=== PATIENT | female | born 1955 | race Caucasian/White ===

== ENCOUNTER → 2024-02-05 08:59 | Outpatient (REF) | payer MEDICARE, SELFPAY | LOC: HWRCS 08:59 | PROVIDERS: ATTENDING PHYSICIAN Family Medicine | DX: I34.0 Nonrheumatic mitral (valve) insufficiency (principal) | CPT/HCPCS: 93306 ==

== ENCOUNTER → 2024-02-23 15:02 | Outpatient (REF) | payer MEDICARE, SELFPAY | LOC: WDC 15:02 | PROVIDERS: ATTENDING PHYSICIAN Family Medicine | DX: Z12.31 Encounter for screening mammogram for malignant neoplasm of breast (principal) | CPT/HCPCS: 77063; 77067 ==

== ENCOUNTER → 2024-07-11 10:54 | Outpatient (REF) | payer MEDICARE, SELFPAY ==
[2024-07-11 11:57] LABS: % Basophils 0.7 % (0-2); % Eosinophils 6.5 % (0-6); % Immature Granulocytes 0.4 % (0-0.5); % Lymphocytes 22.1 % (20.5-51.1); % Monocytes 5.6 % (1.7-9.3); % Neutrophils 64.7 % (42.2-75.2); Absolute Basophils 0.1 10^3/uL (0-0.2); Absolute Eosinophils 0.7 10^3/uL (0-0.7); Absolute Lymphocytes 2.3 10^3/uL (1.2-3.4); Absolute Monocytes 0.6 10^3/uL (0.1-0.6); Absolute Neutrophils 6.6 10^3/uL (1.4-6.5); Hematocrit 41.7 % (37.0-47.0); Hemoglobin 13.8 g/dL (12.0-16.0); Mean Corp Hgb Conc. 33.1 g/dL (33.0-37.0); Mean Corpuscular Hgb 29.7 pg (27.0-31.0); Mean Corpuscular Volume 89.9 fL (81.0-99.0); Mean Platelet Volume 10.3 fL (7.4-10.4); Nucleated Red Blood Cells % 0 %; Platelet Count 295 10^3/uL (130-400); Red Blood Cell Count 4.64 10^6/uL (4.20-5.40); Red Cell Dist. Width 14.6 % (11.5-14.5); White Blood Cell Count 10.2 10^3/uL (4.8-10.8)
[2024-07-11 12:25] LABS: ALT (SGPT) 24 U/L (0-35); AST (SGOT) 22 U/L (14-36); Albumin 4.3 g/dl (3.5-5.0); Alkaline Phosphatase 81 U/L (38-126); Blood Urea Nitrogen 28 mg/dl (7-17); Calcium 9.5 mg/dl (8.4-10.2); Carbon Dioxide 26 mmol/L (22-30); Chloride 105 mmol/L (98-107); Glucose 137 mg/dl (70-99); LDH 166 U/L (120-246); Potassium 4.1 mmol/L (3.5-5.1); Sodium 139 mmol/L (135-145); Total Bilirubin 0.5 mg/dl (0.2-1.3); Total Protein 6.9 g/dl (6.3-8.2); eGFR > 60.00
== END ==
LOC: RAD 10:54
PROVIDERS: ATTENDING PHYSICIAN Dermatology; FAMILY PHYSICIAN Family Medicine
DX: C43.59 Malignant melanoma of other part of trunk (principal)
CPT/HCPCS: 36415; 71046; 80053; 83615; 85025

== ENCOUNTER 2024-08-12 17:54 | Inpatient (IN) | payer MEDICARE, SELFPAY ==
[2024-08-12 11:31] VITALS: BP 155/77
[2024-08-12 14:05] LABS: % Basophils 0.1 % (0-2); % Immature Granulocytes 0.3 % (0-0.5); % Lymphocytes 7.1 % (20.5-51.1); % Monocytes 3.8 % (1.7-9.3); % Neutrophils 88.7 % (42.2-75.2); Absolute Immature Granulocytes 0.1 10^3/uL (0-0.05); Absolute Lymphocytes 1.1 10^3/uL (1.2-3.4); Absolute Monocytes 0.6 10^3/uL (0.1-0.6); Absolute Neutrophils 14.1 10^3/uL (1.4-6.5); Hematocrit 45.6 % (37.0-47.0); Hemoglobin 15.2 g/dL (12.0-16.0); Mean Corp Hgb Conc. 33.3 g/dL (33.0-37.0); Mean Corpuscular Hgb 29.8 pg (27.0-31.0); Mean Corpuscular Volume 89.4 fL (81.0-99.0); Mean Platelet Volume 11.1 fL (7.4-10.4); Nucleated Red Blood Cells % 0 %; Platelet Count 310 10^3/uL (130-400); Red Cell Dist. Width 13.9 % (11.5-14.5); White Blood Cell Count 15.9 10^3/uL (4.8-10.8)
--- NOTE | 2024-08-12 14:36 | ED.GENMED ---
History of Present Illness
General
Chief Complaint: Abdominal Pain
Source: patient
Exam Limitations: none
Time Seen by Provider: 08/12/24 13:59
History of Present Illness
History of Present Illness:
69-year-old female started with crampy abdominal pain mostly right-sided with nausea diarrhea and a small amount of blood in the stool starting at 2 AM. No unusual food ingestion. No travel history. No one else is ill at home. No recent
antibiotics. Symptoms are moderate in nature. Persistent throughout the day. Multiple episodes of vomiting.
Past History
Past History
ED Past Medical History: IDDM and Hypothyroidism
ED Past Surgical History: Gynecological
Review of Systems
Review of Systems
All Other Systems: Not applicable
Constitutional: Denies fever or chills
Respiratory: Reports no symptoms
Cardiac: Reports no symptoms
ABD/GI: Denies black stools
Phy Exam
Physical Exam
Physical Exam:
GENERAL: Alert and oriented in no apparent distress
EYE: Orbits normal.
NECK: Supple
ENT: Pharynx without erythema
CARDIAC: Regular rate and rhythm without any obvious murmurs.
LUNGS: Clear breath sounds,normal
ABDOMEN: Soft, mild mid right abdominal tenderness. No rebound or guarding no mass or hernia
NEUROLOGICAL: Alert and oriented , grossly non-focal
SKIN: Warm and dry, no rash or lesion, no discoloration, skin intact.
MUSCULOSKELETAL: No edema,no deformity.Good color
PSYCH: Normal and appropriate interaction.
Course
Orders/Labs/Results
Orders:
Orders
08/12/24 13:20
Complete Blood Count/With Diff Urgent
Comprehensive Metabolic Panel Urgent
Lipase Urgent
08/12/24 14:26
CT Abd/Pel (IV only)-DH only Urgent
Comment:
Reason For Exam: Right sided abdominal pain/diarrhea
IV Insert/Care/Rem.- Treatment PRN
0.9% Sodium Chloride 1000 ml [Nss] 1,000 ml IV BOLUS
Ondansetron Injectable [Zofran] 4 mg IV NOW STA
08/12/24 16:25
Ampicillin/Sulbactam 3 grams IVPB NOW Ampicillin/Sulbactam 3 G [Unasyn] 3 gm 0.9% Sodium Chloride 100 ml [Nss] 100 ml IV NOW
Abnormal Lab Results
08/12/24
13:20
WBC 15.9 H 10^3/uL
(4.8-10.8)
MPV 11.1 H fL
(7.4-10.4)
Abs Immat Gran (auto) 0.1 H 10^3/uL
(0-0.05)
Absolute Neuts (auto) 14.1 H 10^3/uL
(1.4-6.5)
Absolute Lymphs (auto) 1.1 L 10^3/uL
(1.2-3.4)
Neutrophils % 88.7 H %
(42.2-75.2)
Lymphocytes % 7.1 L %
(20.5-51.1)
BUN 18 H mg/dl
(7-17)
Glucose 126 H mg/dl
(70-99)
08/12/24 13:20
08/12/24 13:20
Vital Signs
Initial and Last Documented VS:
Initial Vital Signs
Temp Pulse Resp BP Pulse Ox
97.6 F 96 22 155/77 97
08/12/24 11:31 08/12/24 11:31 08/12/24 11:31 08/12/24 11:31 08/12/24 11:31
Last Documented Vital Signs
Temp Pulse Resp BP Pulse Ox
97.6 F 96 22 143/84 97
08/12/24 11:31 08/12/24 11:31 08/12/24 11:31 08/12/24 15:54 08/12/24 11:31
MDM/Problems Addressed
Differential Diagnosis Includes:
Patient mostly describing colitis like symptoms. With right-sided symptoms would consider appendicitis. Highly doubt gallbladder. Really no right upper quadrant tenderness. Workup in progress.
*Radiology
Radiology exam reviewed: radiology read reviewed (Severe colitis by CT)
*Pulse Oximetry
Patient hypoxic: no (97%)
*Critical Care Note
Total Time (30-74mins, 75-104mins- exclusive of procedures): Not Applicable
Data Reviewed
Review of Other/Old Records Reveals: Labs, Records and Testing
Update Note
Update Note:
Severe colitis. Admit for further care
ED Attending Note
-
Portions of this chart may have been created with voice recognition software.� Occasional wrong word or��sound alike� substitutions may have occurred due to the inherent limitations of voice recognition software.
Discharge Plan
Departure
Patient Disposition: Admit
Date of Disposition: 08/12/24
Time of Disposition: 16:26
Presentation/result/management discussed w/ accepting MD/DO: Hospitalist
Discharge Problem:
Severe colitis
Prescriptions:
No Action
atorvastatin 40 mg Tablet
40 mg PO 1800
metformin 1,000 mg Tablet
1,000 mg PO BID
thyroid (pork) [[place] Thyroid] 60 mg Tablet
60 mg PO DAILY
Jardiance 25 mg Tablet
25 mg PO 1800
Trulicity 3 mg/0.5 mL Pen Injector
3 mg SC TH
multivitamin Tablet
1 tab PO DAILY
magnesium 250 mg Tablet
250 mg PO DAILY
cholecalciferol (vitamin D3) [Vitamin D3] 25 mcg (1,000 unit) Tablet
25 mcg PO DAILY
meloxicam 7.5 mg Tablet
7.5 mg PO PRN PRN (Reason: PAIN)
esomeprazole magnesium [Nexium] 20 mg Capsule,Delayed Release(Dr/Ec)
20 mg PO Q48H
cyclobenzaprine 5 mg Tablet
5 mg
Patient Comments:
Pt unsure of medication name and dosage, will confirm with Dr. Torres
Referrals:
Zeinab Balderas MD [Family Provider, [facility]]
Interventions
Interventions:
*Risk Screen - Suicide Last Done: 08/12/24 11:31
*General Assessment Last Done: 08/12/24 11:31
*Neglect/Abuse Screening Last Done: 08/12/24 11:31
*ED COVID-19 Vaccine History Last Done: 08/12/24 15:54
TR-Wfmjdv-Yavyxfzuwr Assessment Last Done: 08/12/24 13:24
Discharge Date and Time
Print Language: THAI
[2024-08-12 14:38] LABS: ALT (SGPT) 25 U/L (0-35); AST (SGOT) 24 U/L (14-36); Albumin 4.9 g/dl (3.5-5.0); Alkaline Phosphatase 87 U/L (38-126); Blood Urea Nitrogen 18 mg/dl (7-17); Calcium 9.7 mg/dl (8.4-10.2); Carbon Dioxide 25 mmol/L (22-30); Chloride 104 mmol/L (98-107); Glucose 126 mg/dl (70-99); Lipase 95 U/L (23-300); Potassium 4.6 mmol/L (3.5-5.1); Sodium 139 mmol/L (135-145); Total Bilirubin 0.8 mg/dl (0.2-1.3); Total Protein 7.8 g/dl (6.3-8.2); eGFR > 60.00
[2024-08-12] MEDS: NSS 1000 IV ×2 (14:40→18:45)
[2024-08-12] MEDS: ZOFRAN 4 MG IV (14:40)
[2024-08-12 15:54] VITALS: BP 143/84
--- NOTE | 2024-08-12 16:38 | HPS.HSE ---
Family Physician
-
Family Physician: Zeinab Balderas
Chief Complaint
-
Generalized abdominal pain with nausea, vomiting, pudding-like stool with specks of blood 2 AM
History of Present Illness
69-year-old female complaining of crampy right-sided abdominal pain with nausea, vomiting and pudding-like stool with small specks of blood in the diarrhea that woke her up at 2 AM. She complains of generalized abdominal tenderness but not any
specific side she denies any recent travel, raw foods no recent antibiotics no sick contacts. She reports her last colonoscopy was likely 2020 or they had polyps removed that were benign. She denies any history of diverticulosis, diverticulitis,
Crohn's disease with her or in her family no colon cancers. She does report bowel changes since starting Mounjaro 7 to 8 months ago where she has pudding-like stools to formed stools. She denies headache, sore throat, fever, chills, chest pain,
palpitations, shortness of breath, cough, rash, urinary symptoms. On CT abdomen and the pelvis she was noted to have severe colitis she has past medical history of DM2, HLD, hypothyroidism, GERD, chronic right hip pain,Fibroid uterus S/P
hysteroscopy D&C 10/26/2021 Dr. Torres.
Medical History
Past Medical History
Past Medical History: Reports Other
Additional Past Medical History:
DM 2
HLD
Hypothyroidism
GERD
Chronic right hip pain
Fibroid uterus S/P hysteroscopy D&C 10/2021 Dr. Torres
Class I obesity
Past Surgical History: Reports Other
Additional Past Surgical History:
Tubal ligation
Fibroid uterus status post hysteroscopy D&C 10/2021 Dr. Torres
Social History
Tobacco: Non-smoker
Alcohol: Occasional
Drug: None
Personal: ()
Living: With Family
Employment: Retired
Family History
Family History: Other (Mother CVA, CHF, aortic valve hole age 71, father does not know her biological father, maternal half sister with multiple sclerosis)
Allergies / Home Medications
Allergies reflects when Allergies were last updated in [facility].
Home Medications with original date entered in [facility]
Allergy/Medication List:
Allergies
Allergy/AdvReac Type Severity Reaction Status Date / Time
simvastatin (From Zocor) Allergy Unknown Unknown Verified 08/12/24 11:30
Home Medications
atorvastatin 40 mg tablet 40 mg PO QPM 10/29/21
empagliflozin 25 mg tablet (Jardiance) 25 mg PO QPM 10/29/21
biotin 2,500 mcg chewable tablet 2,500 mcg PO DAILY 08/12/24
cholecalciferol (vitamin D3) 25 mcg (1,000 unit) chewable tablet (Vitamin D3) 50 mcg PO DAILY 08/12/24
cyanocobalamin (vitamin B-12) 1,000 mcg sublingual lozenge 1,000 mcg sublingual DAILY 08/12/24
esomeprazole magnesium 20 mg capsule,delayed release (Nexium) 20 mg PO DAILY 08/12/24
levothyroxine 88 mcg tablet (Synthroid) 88 mcg PO DAILY 08/12/24
metformin 500 mg tablet,extended release 24 hr 1,000 mg PO QPM 08/12/24
tirzepatide 7.5 mg/0.5 mL subcutaneous pen injector (Mounjaro) 7.5 mg SC TU 08/12/24
Review of Systems
-
History Source: Patient and Family ( at bedside)
Constitutional: Denies Fever or Fatigue
EENT: Denies Sore Throat or Runny Nose
Respiratory: Denies Cough or Trouble Breathing
Cardiac: Denies Chest Pain, Diaphoresis, Palpitations or Syncope
Abdomen/GI: Reports Abdominal Pain (Generalized), Nausea, Vomiting and Diarrhea (Pudding-like stool with specks of blood); Denies Constipated, Bloody Stools or Black Stools
: Denies Dysuria, Frequency, Flank Pain, Incontinence, Difficulty Voiding or Urgency
Musculoskeletal: Denies Joint Pain or Edema
Skin: Denies Itching or Rash
Neurological: Denies Dizzy, Headache or Weakness
Endocrine: Reports No Symptoms
Hematologic/Lymphatic: Reports No Symptoms
Psych: Reports Calm
Physical Exam
Vital Signs
Vital Signs
Temp Pulse Resp BP Pulse Ox
97.6 F 96 22 143/84 97
08/12/24 11:31 08/12/24 11:31 08/12/24 11:31 08/12/24 15:54 08/12/24 11:31
Physical Exam
General: Conversant; No Fever, Chills or Sweats
HEENT: NormoCephalic, Anicteric, Moist mucous membranes, PERRLA, [place] Conjunctivae and No Ptosis
Respiratory: Clear; No Wheezes, Rales or Rhonchi
Cardiac: S1/S2 and Regular Rhythm; No Murmur, Rub, Gallop, Peripheral Edema or Calf Tenderness
Breast: Deferred by me
GI: Soft, Non Distended, Normal Bowel Sounds, Tender (Generalized abdomen lightly tender no specific area) and No Hepatosplenomegaly
Rectal: Deferred by Provider
Genito-urinary: Deferred by me
Musculoskeletal: No Clubbing, No Cyanosis and No Edema
Skin: Warm and Dry; No Rash or Jaundice
Neuro: AO x 3, No Motor Deficits, Nonfocal/grossly intact, Cranial Nerves Intact and No Sensory Deficits; No Slurred Speech, Facial Droop, Tremors or Sedated
Psych: Calm
Laboratory Results
-
08/12/24 13:20
08/12/24 13:20
Laboratory Results
Total Bilirubin 0.8 mg/dl (0.2-1.3) 08/12/24 13:20
AST 24 U/L (14-36) 08/12/24 13:20
ALT 25 U/L (0-35) 08/12/24 13:20
Alkaline Phosphatase 87 U/L (38-126) 08/12/24 13:20
Lipase 95 U/L (23-300) 08/12/24 13:20
Data Reviewed
-
CT Scan: Report Reviewed by me
Lab Data: Labs Reviewed by me
Impression/Plan
-
Impression/plan:
Admit to MedSurg
# SIRS/severe colitis descending colon
WBC 15.9 with left shift, afebrile 97.6, HR 96, 143/84
IV 1 L bolus given in ER
-Continue IV NSS 80 cc an hour
-IV Unasyn given in ER will continue
- IV Zofran as needed
-Clear liquid diet
- Follow CBC, CMP
CT abdomen pelvis IV contrast only:
CT findings are most compatible with a moderate to severe colitis of the descending colon no obstruction no extraluminal free air or fluid collection
or ascites
#DM 2
Accu-Cheks with SSI, check HgbA1c
Patient on Mounjaro 7.5 mg Tuesdays last dose on 08/09/2024
- Hold Jardiance 25 mg every afternoon, hold metformin 2000 mg every afternoon
#HLD
-Continue statin
#Hypothyroidism
-Continue Synthroid 88 mcg daily
GERD
Continue Nexium or equivalent
Other PMH:
Chronic right hip pain
Fibroid uterus S/P hysteroscopy D&C 10/26/2021 Dr. Torres
DVT prophylaxis
Scd's
Full code
--- NOTE | 2024-08-12 16:58 | W.PN.UPDATE ---
Update Note
Progress Note Update
This note serves as an addendum to the H&P by income tax adjuster ТАТЬЯНА Betty GARZA
HPI
69F HX DM 2, HLD, Hypothyroidism, Chronic right hip seen at ER
- crampy abdominal pain mostly right-sided
- POS nausea, diarrhea and a small amount of blood in the stool starting at 2 AM.
- Symptoms are moderate in nature.
- Persistent throughout the day. Multiple episodes of vomiting.
- No unusual food ingestion.
- No travel history.
- No one else is ill at home.
- No recent antibiotics.
Vital Signs
Temp Pulse Resp BP Pulse Ox
97.6 F 96 22 143/84 97
08/12/24 11:31 08/12/24 11:31 08/12/24 11:31 08/12/24 15:54 08/12/24 11:31
PE
Gen: Not toxic
HEENT: anicteric
Neck: supple
Lungs: CTA
Cor: RRR S1 S1
Abdomen: soft , mild mid right abdominal tenderness. No rebound or guarding
PRODUCTION OPERATIONS ENGINEER:NFND , AAO3
MS: n edema
Psych: Normal and appropriate interaction.
Data
admission Labs
08/12/24
13:20
WBC 15.9 H
Neutrophils % 88.7 H
Lymphocytes % 7.1 L
BUN 18 H
Creatinine 0.6
eGFR > 60.00
AST 24
ALT 25
Alkaline Phosphatase 87
Lipase 95
CT Abd/Pel (IV only)-DH only
- most compatible with a moderate to severe colitis of the descending colon.
NO PRIOR hospitalist admission:
ASSESSMENT & PLAN
Pending Rx reconciliation
SIRS( HR > 90, WCC 15.9 wity ) paulo to severe colitis of descending colon DDX: infective vs IBD
Presumed sepsis
Afebrile 97.6, HR 96, BP 143/84
acute pudding like soft BMs since IM Mounjaro with blood specks
N/V and loose stool with specks of blood
- stool for CX, Norovirus
- check LA
- s/p IV 1 L bolus given in ER
- c/w IV NS @ 80/H
- Empiric IV Unasyn given in ER will continue
- IV Zofran PRN
- Clear liquid diet
- trend VSS
- GI consult
DM 2
Obesity
- Pending reconciliation
- on clear and ADAT
- Hold IM Mounjaro once per month
- Low SSI
- check HgbA1c
HLD
-Continue statin/ Pending Rx reconciliation
Hypothyroidism
- Continue [place] Thyroid / Pending Rx reconciliation
Other PMH:
Chronic right hip pain
Fibroid uterus S/P hysteroscopy D&C 10/26/2021 Dr. Torres
DVT Px: LMWH SQ
Full code
IP MS
[2024-08-12] MEDS: UNASYN IV ×2 (17:10→22:03)
[2024-08-12 18:13] VITALS: BP 149/89; BMI 25.4
[2024-08-12] MEDS: LIPITOR PO (18:42)
[2024-08-12 21:37] LABS: Glucose - Point of Care 121 mg/dl (70-99)
[2024-08-12 23:09] VITALS: BP 150/93
[2024-08-13 03:03] VITALS: BP 142/82
[2024-08-13] MEDS: NSS 1000 IV ×2 (05:02→17:00)
[2024-08-13] MEDS: UNASYN IV ×4 (05:03→23:43)
[2024-08-13 07:20] VITALS: BP 155/90
[2024-08-13 07:21] LABS: Glucose - Point of Care 121 mg/dl (70-99)
[2024-08-13 07:41] LABS: % Basophils 0.4 % (0-2); % Eosinophils 0.1 % (0-6); % Immature Granulocytes 0.4 % (0-0.5); % Lymphocytes 9.3 % (20.5-51.1); % Monocytes 6.3 % (1.7-9.3); % Neutrophils 83.5 % (42.2-75.2); Absolute Basophils 0.1 10^3/uL (0-0.2); Absolute Immature Granulocytes 0.1 10^3/uL (0-0.05); Absolute Lymphocytes 1.5 10^3/uL (1.2-3.4); Absolute Neutrophils 13.6 10^3/uL (1.4-6.5); Hematocrit 42.4 % (37.0-47.0); Hemoglobin 13.9 g/dL (12.0-16.0); Mean Corp Hgb Conc. 32.8 g/dL (33.0-37.0); Mean Corpuscular Hgb 29.3 pg (27.0-31.0); Mean Corpuscular Volume 89.5 fL (81.0-99.0); Mean Platelet Volume 10.7 fL (7.4-10.4); Nucleated Red Blood Cells % 0 %; Platelet Count 265 10^3/uL (130-400); Red Blood Cell Count 4.74 10^6/uL (4.20-5.40); White Blood Cell Count 16.3 10^3/uL (4.8-10.8)
[2024-08-13] MEDS: PROTONIX PO (08:02)
[2024-08-13] MEDS: SYNTHROID 88 MCG PO (08:02)
[2024-08-13 08:15] LABS: ALT (SGPT) 17 U/L (0-35); AST (SGOT) 16 U/L (14-36); Alkaline Phosphatase 82 U/L (38-126); Blood Urea Nitrogen 10 mg/dl (7-17); Calcium 8.6 mg/dl (8.4-10.2); Carbon Dioxide 23 mmol/L (22-30); Chloride 106 mmol/L (98-107); Estimated Creatinine Clearance 53 ml/min; Glucose 117 mg/dl (70-99); Potassium 4.1 mmol/L (3.5-5.1); Sodium 138 mmol/L (135-145); Total Protein 6.5 g/dl (6.3-8.2); eGFR > 60.00
--- NOTE | 2024-08-13 08:34 | CON.GI ---
Addendum entered and electronically signed by Abilio Mariscal MD 08/13/24 15:26:
I saw and examined the patient.
The PERSONAL COMPUTER NETWORK ANALYST or PA's note was reviewed and I agree with the note.
Comment:
Pt with a hx of abdominal pain, nausea, diarrhea, left sided colitis by CT scan. has a hx of barretts esophagus as well
abd: soft, tender
impression
colitis
hx of barretts
abd pain
diarrhea
plan:
stool studies
antibiotics
IV hydration
will need outpatient colonoscopy
outpatient EGD for hx of barretts
Original Note:
Consultation
-
Date/Time Consultation Requested: 08/12/24 1700
Date/Time Consultation Performed: 08/13/24 0830
Requesting Provider: CARLITO Cohen
Performing Provider: CARLITO Thomas, Abilio Mariscal MD
Reason for Consultation: colitis
Medical History
Chief Complaint / HPI
Chief Complaint: blood stool, vomiting
History of Present Illness:
Pt is a 69yo with hx hyperlipidemia, NIDDM, hypothyroidism, GERD, alvarez's esophagus, valvular disease, breast mass, osteopenia, DDD, obesity with onset of crampy abdominal pain right sided with nausea and diarrhea with small amounts of blood in
stool. On admission noted with WBC 15,900, glucose [address] A/p CT findings are most compatible with a moderate to severe colitis of the descending colon. Prior work up as noted with EGD and colonoscopy.
In review with patient she started mounjaro several months ago. She was unsure of timing but has noted change in bowel habits with diarrhea and constipation. She had bad bout of Covid in March but bowel issues persisted and now noted with
increased bleeding prompting ER evaluation. She is noted with some lower abdominal pain. Pt admits to nausea and vomiting with symptoms but denies further bleeding overnight. No odynophagia, dysphagia, GERD, or black stools. Stool studies with
moderate WBC otherwise pending. No other new meds, recent travel or abx use.
06/2021 EGD -morsbach Normal esophagus. - Esophageal mucosal changes secondary to established short-segment Alvarez's disease. Biopsied.- 1 cm hiatal hernia.
- Minimal antral gastritis. Biopsies were taken for Helicobacter pylori testing. - A few gastric polyps. Biopsied- Normal examined duodenum. Biopsied for evaluation
of celiac disease bx neg
07/15/2018- colonoscopy - - Mild diverticulosis in the sigmoid colon and in the descending colon - Non-bleeding internal hemorrhoids - The examined portion of the ileum was normal.
Past Medical History
Past Medical History: GERD, Hypercholesterolemia, Hypothyroidism, NIDDM, Valvular Disease (MR, TI) and Other (alvarez's esophagus, breast mass, osteopenia, DDD, obesity, chronic hip pain)
Past Surgical History: Gynecological (tubal, D+C, uterine polyp removal) and Other (liposuction)
Social History
Tobacco: Non-Smoker
Alcohol: None
Drug: None
Personal:
Living: With Family
Employment: Retired
Family History
Family History: Other (no family hx colon Ca, crohns or UC)
Allergies / Home Medications
Allergy/AdvReac Type Severity Reaction Status Date / Time
simvastatin (From Zocor) Allergy Unknown Unknown Verified 08/12/24 11:30
�Medication �Instructions �Recorded
atorvastatin 40 mg tablet 40 mg PO QPM 10/29/21
empagliflozin 25 mg tablet 25 mg PO QPM 10/29/21
(Jardiance)
biotin 2,500 mcg chewable tablet 2,500 mcg PO DAILY 08/12/24
cholecalciferol (vitamin D3) 25 50 mcg PO DAILY 08/12/24
mcg (1,000 unit) chewable tablet
(Vitamin D3)
cyanocobalamin (vitamin B-12) 1,000 mcg sublingual DAILY 08/12/24
1,000 mcg sublingual lozenge
esomeprazole magnesium 20 mg 20 mg PO DAILY 08/12/24
capsule,delayed release (Nexium)
levothyroxine 88 mcg tablet 88 mcg PO DAILY 08/12/24
(Synthroid)
metformin 500 mg tablet,extended 1,000 mg PO QPM 08/12/24
release 24 hr
tirzepatide 7.5 mg/0.5 mL 7.5 mg SC TU 08/12/24
subcutaneous pen injector
(Melissa)
Review of Systems
-
History Source: Patient
Constitutional: Reports Weight Loss (few lbs over time )
EENT: Reports No Symptoms
Respiratory: Reports No Symptoms
Cardiac: Reports No Symptoms
Abdomen/GI: Reports Abdominal Pain, Nausea, Vomiting, Diarrhea and Bloody Stools
: Reports No Symptoms
Musculoskeletal: Reports Other (chronic back pain)
Skin: Reports No Symptoms
Neurological: Reports No Symptoms
Endocrine: Reports No Symptoms
Hematologic/Lymphatic: Reports Bleeding
Vital Signs
Temp Pulse Resp BP Pulse Ox
98.6 F 97 16 155/90 97
08/13/24 07:20 08/13/24 07:20 08/13/24 07:20 08/13/24 07:20 08/13/24 07:20
Physical Exam
Exam
General: Well Developed, Well Nourished and No Apparent Distress
HEENT: Normocephalic and Anicteric
Respiratory: Clear
Cardiac: Regular Rhythm
GI: Soft, Non Distended and Tender (LLQ)
Musculoskeletal: No Clubbing and No Cyanosis
Skin: Warm and Dry
Neuro: Awake, Alert and AO x 3
Psych: Calm
Results
WBC 16.3 10^3/uL (4.8-10.8) H 08/13/24 06:30
Hgb 13.9 g/dL (12.0-16.0) 08/13/24 06:30
Hct 42.4 % (37.0-47.0) 08/13/24 06:30
MCV 89.5 fL (81.0-99.0) 08/13/24 06:30
Plt Count 265 10^3/uL (130-400) 08/13/24 06:30
Absolute Neuts (auto) 13.6 10^3/uL (1.4-6.5) H 08/13/24 06:30
Sodium 138 mmol/L (135-145) 08/13/24 06:30
Potassium 4.1 mmol/L (3.5-5.1) 08/13/24 06:30
Chloride 106 mmol/L (98-107) 08/13/24 06:30
Carbon Dioxide 23 mmol/L (22-30) 08/13/24 06:30
BUN 10 mg/dl (7-17) 08/13/24 06:30
Creatinine 0.7 mg/dL (0.6-1.0) 08/13/24 06:30
Calcium 8.6 mg/dl (8.4-10.2) 08/13/24 06:30
Total Bilirubin 1.0 mg/dl (0.2-1.3) 08/13/24 06:30
AST 16 U/L (14-36) 08/13/24 06:30
ALT 17 U/L (0-35) 08/13/24 06:30
Alkaline Phosphatase 82 U/L (38-126) 08/13/24 06:30
Lipase 95 U/L (23-300) 08/12/24 13:20
Diagnostic Image Results:
08/12/24 CT Abd/Pel (IV only)-DH only
CT findings are most compatible with a moderate to severe colitis of the descending colon.
Prior GI Procedures:
06/2021 EGD -morsbach Normal esophagus. - Esophageal mucosal changes secondary to established short-segment Alvarez's disease. Biopsied.- 1 cm hiatal hernia.
- Minimal antral gastritis. Biopsies were taken for Helicobacter pylori testing. - A few gastric polyps. Biopsied- Normal examined duodenum. Biopsied for evaluation
of celiac disease
07/15/2018- colonoscopy - - Mild diverticulosis in the sigmoid colon and in the descending colon - Non-bleeding internal hemorrhoids - The examined portion of the ileum was normal.
Assessment / Plan
-
Pt is a 69yo with hx hyperlipidemia, NIDDM, hypothyroidism, GERD, lavarez's esophagus, valvular disease, breast mass, osteopenia, DDD, obesity with onset of crampy abdominal pain right sided with nausea and diarrhea with small amounts of blood in
stool. On admission noted with WBC 15,900, glucose [address] A/p CT findings are most compatible with a moderate to severe colitis of the descending colon. In review with patient she started mounjaro several months ago. She
was unsure of timing but has noted change in bowel habits with diarrhea and constipation. She had bad bout of Covid in March but bowel issues persisted and now noted with increased bleeding prompting ER evaluation. She is noted with some lower
abdominal pain. Pt admits to nausea and vomiting with symptoms but denies further bleeding overnight. No odynophagia, dysphagia, GERD, or black stools. Stool studies with moderate WBC otherwise pending. No other new meds, recent travel or abx
use. Last EGD 06/2021 with noted changes of alvarez's, gastritis, polyps, bx neg 07/15/2018- colonoscopy - - Mild diverticulosis in the sigmoid colon and in the descending colon - Non-bleeding internal hemorrhoids - The examined portion of the
ileum was normal.
-diarrhea/rectal bleeding
-CT with descending colitis
-leukocytosis
-hx change in bowel habits for several months
other med problems:
hyperlipidemia
NIDDM
hypothyroidism
GERD
alvarez's esophagus
valvular disease
breast mass
osteopenia
DDD
obesity
PLAN:
etiology of colitis related to infectious, vs chronic colitis - UC/crohns with ongoing change in bowel pattern vs ischemic vs other
increased WBC in stool- await cultures- add c-diff, giardia/crypto
add CRP and ESR
cont abx
trend hbg and stool record
clear diet advance as tolerated
will need colonoscopy 6-8 week OP -- sooner if not improving
due EGD 06/2025 with hx barretts
-
-
Thank you for consultation and allowing me to participate in the patient's care. Please call the performance improvement consultant GI physician during the after hours with any questions or concerns.
[2024-08-13 10:12] LABS: Erythrocyte Sed Rate 13 mm/hour (0-20)
[2024-08-13 10:53] LABS: Glycohemoglobin (HgbA1c) 6.9 % (4.0-5.6)
--- NOTE | 2024-08-13 11:03 | CM ---
CM reviewed chart, patient seen bedside, initial assessment completed. Patient resides with her in a multiple story home, bedroom on second floor, few steps to enter home. Patient denies use of DME, VN/SNF history. Patient confirms PCP Zeinab
Sherrie, [facility], confirms prescription coverage through [facility]. Patient denies insecurities at home. Patient reports her will provide transport home when stable. CM will continue to follow for all discharge planning needs.
Plan; home with spouse when stable
[2024-08-13 11:36] LABS: Glucose - Point of Care 140 mg/dl (70-99)
--- NOTE | 2024-08-13 11:49 | W.PN.HOSP.TC ---
Today's Communication/Plan
-
Monitor vital signs see plan
Continue with clears
Continue antibiotics
IVF
GI following
Assessment / Plan
Assessment / Plan
General: Conversant; No Fever, Chills or Sweats
HEENT: NormoCephalic, Anicteric, Moist mucous membranes
Respiratory: Clear; No Wheezes, Rales or Rhonchi
Cardiac: S1/S2 and Regular Rhythm; No Murmur, Rub, Gallop
GI: Soft, Non Distended, Normal Bowel Sounds, mildly tender
Musculoskeletal: No Edema
Neuro: AO x 3, No Motor Deficits, Nonfocal/grossly intact
Psych: Calm
SIRS/severe colitis descending colon
Continue with fluids
Continue antibiotics
Follow stool studies
GI following
Continue with clears for now
CT abdomen pelvis IV contrast only:
CT findings are most compatible with a moderate to severe colitis of the descending colon no obstruction no extraluminal free air or fluid collection
or ascites
#DM 2
Accu-Cheks with SSI, check HgbA1c 6.9
Patient on Mounjaro 7.5 mg Tuesdays last dose on 08/09/2024
- Hold Jardiance 25 mg every afternoon, hold metformin 2000 mg every afternoon
#HLD
-Continue statin
#Hypothyroidism
-Continue Synthroid 88 mcg daily
GERD
History of Rod's
Continue Nexium or equivalent
Other PMH:
Chronic right hip pain
Fibroid uterus S/P hysteroscopy D&C 10/26/2021 Dr. Torres
DVT prophylaxis
Scd's,lovenox
Full code
Anticipated Discharge: 24 - 48 hours
Subjective/Interval History
-
Date of Service: August 13, 2024
denies nausea
Objective Data
-
Labs:
Laboratory Results
06/07/25
06:30
WBC 16.3 H
Hgb 13.9
Hct 42.4
Plt Count 265
Sodium 138
Potassium 4.1
Chloride 106
Carbon Dioxide 23
BUN 10
Creatinine 0.7
Glucose 117 H
Calcium 8.6
Total Bilirubin 1.0
AST 16
ALT 17
Alkaline Phosphatase 82
Vital Signs:
Vital Signs
Temp Pulse Resp BP Pulse Ox
98.6 F 97 16 155/90 97
08/13/24 07:20 08/13/24 07:20 08/13/24 07:20 08/13/24 07:20 08/13/24 08:00
I&O
08/12/24 08/13/24 08/14/24
06:59 06:59 06:59
Intake Total 1720 / 1720
Balance 1720 / 1720
--- NOTE | 2024-08-13 11:59 | PTCARENOTE ---
Patient alerted staff of [facility] after passing gas. GEOGRAPHIC INFORMATION SYSTEM ANALYST [facility] notified, advised to keep patient on clear liquid diet and continue to monitor at this time. New gown and linens provided to patient. Plan of care ongoing.
[2024-08-13 15:09] VITALS: BP 154/93
[2024-08-13 16:41] LABS: Glucose - Point of Care 129 mg/dl (70-99)
[2024-08-13] MEDS: LIPITOR 40 MG PO (17:01)
[2024-08-13 21:33] LABS: Glucose - Point of Care 107 mg/dl (70-99)
[2024-08-13 23:16] VITALS: BP 126/82
[2024-08-14] MEDS: NSS 1000 IV ×3 (04:30→22:59)
[2024-08-14] MEDS: UNASYN IV ×4 (04:31→22:58)
[2024-08-14 06:47] LABS: % Basophils 0.5 % (0-2); % Eosinophils 1.9 % (0-6); % Immature Granulocytes 0.3 % (0-0.5); % Lymphocytes 13.2 % (20.5-51.1); % Monocytes 6.5 % (1.7-9.3); % Neutrophils 77.6 % (42.2-75.2); Absolute Basophils 0.1 10^3/uL (0-0.2); Absolute Eosinophils 0.2 10^3/uL (0-0.7); Absolute Lymphocytes 1.6 10^3/uL (1.2-3.4); Absolute Monocytes 0.8 10^3/uL (0.1-0.6); Absolute Neutrophils 9.3 10^3/uL (1.4-6.5); Hematocrit 40.2 % (37.0-47.0); Hemoglobin 13.4 g/dL (12.0-16.0); Mean Corp Hgb Conc. 33.3 g/dL (33.0-37.0); Mean Corpuscular Hgb 29.5 pg (27.0-31.0); Mean Corpuscular Volume 88.5 fL (81.0-99.0); Mean Platelet Volume 10.5 fL (7.4-10.4); Nucleated Red Blood Cells % 0 %; Platelet Count 222 10^3/uL (130-400); Red Blood Cell Count 4.54 10^6/uL (4.20-5.40); Red Cell Dist. Width 13.9 % (11.5-14.5); White Blood Cell Count 11.9 10^3/uL (4.8-10.8)
[2024-08-14 07:11] LABS: ALT (SGPT) 13 U/L (0-35); AST (SGOT) 13 U/L (14-36); Albumin 3.5 g/dl (3.5-5.0); Alkaline Phosphatase 78 U/L (38-126); Blood Urea Nitrogen 7 mg/dl (7-17); Calcium 8.6 mg/dl (8.4-10.2); Carbon Dioxide 26 mmol/L (22-30); Chloride 107 mmol/L (98-107); Estimated Creatinine Clearance 62 ml/min; Glucose 128 mg/dl (70-99); Potassium 3.7 mmol/L (3.5-5.1); Sodium 140 mmol/L (135-145); Total Bilirubin 0.8 mg/dl (0.2-1.3); Total Protein 5.9 g/dl (6.3-8.2); eGFR > 60.00
[2024-08-14 07:27] LABS: Glucose - Point of Care 115 mg/dl (70-99)
[2024-08-14 07:30] VITALS: BP 117/82
[2024-08-14] MEDS: PROTONIX PO (07:32)
[2024-08-14] MEDS: SYNTHROID 88 MCG PO (07:33)
--- NOTE | 2024-08-14 08:19 | VATNOTE ---
During routine assessment, redness noted at pt's L arm IV site, pt states site is uncomfortable. IV removed and heat applied. Pt declined IV restart after several offers, states she will just keep her R arm straight. No-no reapplied and new IV
tubing spiked. Reiterated to pt that she can have her PCN contact me if she changes her mind about IV restart.
[2024-08-14 11:34] LABS: Glucose - Point of Care 112 mg/dl (70-99)
--- NOTE | 2024-08-14 11:55 | W.PN.GI.CBS2 ---
Today's Communication / Plan
-
full liquids
Assessment / Plan
-
Pt is a 69yo with hx hyperlipidemia, NIDDM, hypothyroidism, GERD, alvarez's esophagus, valvular disease, breast mass, osteopenia, DDD, obesity with onset of crampy abdominal pain right sided with nausea and diarrhea with small amounts of blood in
stool. On admission noted with WBC 15,900, glucose [address] A/p CT findings are most compatible with a moderate to severe colitis of the descending colon. In review with patient she started mounjaro several months ago. She
was unsure of timing but has noted change in bowel habits with diarrhea and constipation. She had bad bout of Covid in March but bowel issues persisted and now noted with increased bleeding prompting ER evaluation. She is noted with some lower
abdominal pain. Pt admits to nausea and vomiting with symptoms but denies further bleeding overnight. No odynophagia, dysphagia, GERD, or black stools. Stool studies with moderate WBC otherwise pending. No other new meds, recent travel or abx
use. Last EGD 06/2021 with noted changes of alvarez's, gastritis, polyps, bx neg 07/15/2018- colonoscopy - - Mild diverticulosis in the sigmoid colon and in the descending colon - Non-bleeding internal hemorrhoids - The examined portion of the
ileum was normal.
-diarrhea/rectal bleeding
-CT with descending colitis
-leukocytosis
-hx change in bowel habits for several months
other med problems:
hyperlipidemia
NIDDM
hypothyroidism
GERD
alvarez's esophagus
valvular disease
breast mass
osteopenia
DDD
obesity
PLAN:
Improved wbc and clinically can advance to full liquids
continue antibiotics
await all stool studies
outpatient egd/colonoscopy
Subjective
Subjective
Date of Service: August 14, 2024
Pt with more gas but no bleeding, tolerated clears
Objective
Data Reviewed
Laboratory Data:
Laboratory Results
06/08/25 06:24
08/14/24 06:24
Laboratory Results
Total Bilirubin 0.8 mg/dl (0.2-1.3) 08/14/24 06:24
AST 13 U/L (14-36) L 08/14/24 06:24
ALT 13 U/L (0-35) 08/14/24 06:24
Alkaline Phosphatase 78 U/L (38-126) 08/14/24 06:24
Lipase 95 U/L (23-300) 08/12/24 13:20
Vital Signs and I&O:
Vital Signs
Temp Pulse Resp BP Pulse Ox
97.9 F 86 18 117/82 94
08/14/24 07:30 08/14/24 07:30 08/14/24 07:30 08/14/24 07:30 08/14/24 08:00
I&O
08/13/24 08/14/24 08/15/24
06:59 06:59 06:59
Intake Total 1720 / 1720 3480 / 3480
Balance 1720 / 1720 3480 / 3480
Physical Exam
Physical Exam
GI: Soft and Tender (mild left side)
Neuro: Non Focal
--- NOTE | 2024-08-14 12:08 | W.PN.HOSP.TC ---
Today's Communication/Plan
-
Monitor vitals
See plan
Continue with fulls
Monitor bloody BMs
Continue abx
Leukocytosis improving
Assessment / Plan
Assessment / Plan
General: Conversant; No Fever, Chills or Sweats
HEENT: NormoCephalic, Anicteric, Moist mucous membranes
Respiratory: Clear; No Wheezes, Rales or Rhonchi
Cardiac: S1/S2 and Regular Rhythm; No Murmur, Rub, Gallop
GI: Soft, Non Distended, Normal Bowel Sounds, mildly tender
Musculoskeletal: No Edema
Neuro: AO x 3, No Motor Deficits, Nonfocal/grossly intact
Psych: Calm
SIRS/severe colitis descending colon
no bcx was checked on admission
CT with moderate to severe colitis of the descending colon
Continue with fluids
Continue antibiotics
Follow stool studies
GI following
Advance diet to fulls and monitor, still with bright red blood. Discussed with GI, currently appears to be outpatient EGD/colonoscopy.
CT abdomen pelvis IV contrast only:
CT findings are most compatible with a moderate to severe colitis of the descending colon no obstruction no extraluminal free air or fluid collection
or ascites
#DM 2
Accu-Cheks with SSI, check HgbA1c 6.9
Patient on Mounjaro 7.5 mg Tuesdays last dose on 08/09/2024; would avoid Mounjaro for now
- Hold Jardiance 25 mg every afternoon, hold metformin 2000 mg every afternoon
#HLD
-Continue statin
#Hypothyroidism
-Continue Synthroid 88 mcg daily
GERD
History of Rod's
Continue Nexium or equivalent
Other PMH:
Chronic right hip pain
Fibroid uterus S/P hysteroscopy D&C 10/26/2021 Dr. Torres
DVT prophylaxis
Scd's,lovenox
Full code
Anticipated Discharge: 24 - 48 hours
Subjective/Interval History
-
Date of Service: August 14, 2024
Bright red blood per rectum
Objective Data
-
Labs:
Laboratory Results
08/14/24
06:24
WBC 11.9 H
Hgb 13.4
Hct 40.2
Plt Count 222
Sodium 140
Potassium 3.7
Chloride 107
Carbon Dioxide 26
BUN 7
Creatinine 0.6
Glucose 128 H
Calcium 8.6
Total Bilirubin 0.8
AST 13 L
ALT 13
Alkaline Phosphatase 78
Vital Signs:
Vital Signs
Temp Pulse Resp BP Pulse Ox
97.9 F 86 18 117/82 94
08/14/24 07:30 08/14/24 07:30 08/14/24 07:30 08/14/24 07:30 08/14/24 08:00
I&O
08/13/24 08/14/24 08/15/24
06:59 06:59 06:59
Intake Total 1720 / 1720 3480 / 3480
Balance 1720 / 1720 3480 / 3480
[2024-08-14 15:13] VITALS: BP 150/87
[2024-08-14 16:36] LABS: Glucose - Point of Care 106 mg/dl (70-99)
[2024-08-14] MEDS: LIPITOR 40 MG PO (17:17)
[2024-08-14 21:24] LABS: Glucose - Point of Care 134 mg/dl (70-99)
[2024-08-14 23:37] VITALS: BP 136/78
[2024-08-15] MEDS: UNASYN IV ×2 (04:48→10:11)
[2024-08-15 07:00] VITALS: BP 121/73
[2024-08-15 07:09] LABS: % Basophils 0.7 % (0-2); % Immature Granulocytes 0.7 % (0-0.5); % Lymphocytes 14.5 % (20.5-51.1); % Monocytes 8.3 % (1.7-9.3); % Neutrophils 71.8 % (42.2-75.2); Absolute Basophils 0.1 10^3/uL (0-0.2); Absolute Eosinophils 0.4 10^3/uL (0-0.7); Absolute Immature Granulocytes 0.1 10^3/uL (0-0.05); Absolute Lymphocytes 1.3 10^3/uL (1.2-3.4); Absolute Monocytes 0.8 10^3/uL (0.1-0.6); Absolute Neutrophils 6.6 10^3/uL (1.4-6.5); Hematocrit 40.6 % (37.0-47.0); Hemoglobin 13.7 g/dL (12.0-16.0); Mean Corp Hgb Conc. 33.7 g/dL (33.0-37.0); Mean Corpuscular Hgb 29.8 pg (27.0-31.0); Mean Corpuscular Volume 88.5 fL (81.0-99.0); Mean Platelet Volume 10.6 fL (7.4-10.4); Nucleated Red Blood Cells % 0 %; Platelet Count 229 10^3/uL (130-400); Red Blood Cell Count 4.59 10^6/uL (4.20-5.40); Red Cell Dist. Width 13.8 % (11.5-14.5); White Blood Cell Count 9.2 10^3/uL (4.8-10.8)
[2024-08-15 07:45] LABS: Glucose - Point of Care 151 mg/dl (70-99)
[2024-08-15 08:12] LABS: ALT (SGPT) 15 U/L (0-35); AST (SGOT) 17 U/L (14-36); Albumin 3.4 g/dl (3.5-5.0); Alkaline Phosphatase 73 U/L (38-126); Blood Urea Nitrogen 6 mg/dl (7-17); Calcium 8.5 mg/dl (8.4-10.2); Carbon Dioxide 30 mmol/L (22-30); Chloride 107 mmol/L (98-107); Estimated Creatinine Clearance 62 ml/min; Glucose 119 mg/dl (70-99); Potassium 3.6 mmol/L (3.5-5.1); Sodium 141 mmol/L (135-145); Total Bilirubin 0.7 mg/dl (0.2-1.3); Total Protein 5.9 g/dl (6.3-8.2); eGFR > 60.00
[2024-08-15] MEDS: SYNTHROID 88 MCG PO (08:46)
[2024-08-15] MEDS: PROTONIX 40 MG PO (08:46)
--- NOTE | 2024-08-15 08:48 | W.PN.GI.CBS2 ---
Today's Communication / Plan
-
diet
Assessment / Plan
-
Pt is a 69yo with hx hyperlipidemia, NIDDM, hypothyroidism, GERD, alvarez's esophagus, valvular disease, breast mass, osteopenia, DDD, obesity with onset of crampy abdominal pain right sided with nausea and diarrhea with small amounts of blood in
stool. On admission noted with WBC 15,900, glucose [address] A/p CT findings are most compatible with a moderate to severe colitis of the descending colon. In review with patient she started mounjaro several months ago. She
was unsure of timing but has noted change in bowel habits with diarrhea and constipation. She had bad bout of Covid in March but bowel issues persisted and now noted with increased bleeding prompting ER evaluation. She is noted with some lower
abdominal pain. Pt admits to nausea and vomiting with symptoms but denies further bleeding overnight. No odynophagia, dysphagia, GERD, or black stools. Stool studies with moderate WBC otherwise pending. No other new meds, recent travel or abx
use. Last EGD 06/2021 with noted changes of alvarez's, gastritis, polyps, bx neg 07/15/2018- colonoscopy - - Mild diverticulosis in the sigmoid colon and in the descending colon - Non-bleeding internal hemorrhoids - The examined portion of the
ileum was normal.
-diarrhea/rectal bleeding
-CT with descending colitis
-leukocytosis
-hx change in bowel habits for several months
other med problems:
hyperlipidemia
NIDDM
hypothyroidism
GERD
alvarez's esophagus
valvular disease
breast mass
osteopenia
DDD
obesity
PLAN:
seems almost back to baseline
lactose free diet
will sign off
will make f/u with Gi as she has a hx of barretts as well as is known to our group
Subjective
Subjective
Date of Service: August 15, 2024
Pt feels much better. had bm, less gas. tolerated diet yesterday
Objective
Data Reviewed
Laboratory Data:
Laboratory Results
08/15/24 06:03
08/15/24 06:03
Laboratory Results
Total Bilirubin 0.7 mg/dl (0.2-1.3) 08/15/24 06:03
AST 17 U/L (14-36) 08/15/24 06:03
ALT 15 U/L (0-35) 08/15/24 06:03
Alkaline Phosphatase 73 U/L (38-126) 08/15/24 06:03
Lipase 95 U/L (23-300) 08/12/24 13:20
Vital Signs and I&O:
Vital Signs
Temp Pulse Resp BP Pulse Ox
98.1 F 83 16 121/73 96
08/15/24 07:00 08/15/24 07:00 08/15/24 07:00 08/15/24 07:00 08/15/24 07:00
I&O
08/14/24 08/15/24 08/16/24
06:59 06:59 06:59
Intake Total 3480 / 3480 1899 / 1900
Balance 3480 / 3480 1900 / 1900
Physical Exam
Physical Exam
HEENT: Anicteric
GI: Soft, Non Distended and Non Tender
Neuro: Non Focal
[2024-08-15 11:47] LABS: Glucose - Point of Care 211 mg/dl (70-99)
--- NOTE | 2024-08-15 12:00 | PTCARENOTE ---
Pt's blood sugars elevated today, pt refusing sliding scale coverage insulin. Usually takes Metformin and Jardiance. Dr. Edmondson made aware of refusal of insulin and Dr. klein order meds.
--- NOTE | 2024-08-15 12:23 | W.PN.HOSP.TC ---
Addendum entered and electronically signed by Rakel Rojo MD, Resident 08/17/24 15:35:
Sepsis likely secondary to severe colitis.
Addendum entered and electronically signed by Db Edmondson, 08/16/24 12:56:
CDI: Sepsis secondary to colitis, resolved sepsis as of 08/15
Original Note:
Today's Communication/Plan
-
Discharged today
Assessment / Plan
Assessment / Plan
Assessment/plan
#severe colitis
no bcx was checked on admission
CT with moderate to severe colitis of the descending colon
Leukocytosis improved
Patient is able to tolerate solids well
Continue antibiotics at discharge�Augmentin for 4 more days
Follow stool studies
GI on board�currently appears to be outpatient EGD/colonoscopy.
#DM 2
Accu-Cheks with SSI, check HgbA1c 6.9
Patient on Mounjaro 7.5 mg Tuesdays last dose on 08/09/2024; would avoid Mounjaro for now
Resume Jardiance and metformin at discharge
#HLD
-Continue statin
#Hypothyroidism
-Continue Synthroid 88 mcg daily
GERD
History of Rod's
Continue Nexium or equivalent
Other PMH:
Chronic right hip pain
Fibroid uterus S/P hysteroscopy D&C 10/26/2021 Dr. Torres
DVT prophylaxis
Scd's,lovenox
Full code
Anticipated Discharge: Today
Subjective/Interval History
-
Date of Service: August 15, 2024
Patient feels much better.
Objective Data
-
Labs:
Laboratory Results
08/15/24
06:03
WBC 9.2
Hgb 13.7
Hct 40.6
Plt Count 229
Sodium 141
Potassium 3.6
Chloride 107
Carbon Dioxide 30
BUN 6 L
Creatinine 0.6
Glucose 119 H
Calcium 8.5
Total Bilirubin 0.7
AST 17
ALT 15
Alkaline Phosphatase 73
Vital Signs:
Vital Signs
Temp Pulse Resp BP Pulse Ox
98.1 F 83 16 121/73 96
08/15/24 07:00 08/15/24 07:00 08/15/24 07:00 08/15/24 07:00 08/15/24 08:45
I&O
08/14/24 08/15/24 08/16/24
06:59 06:59 06:59
Intake Total 3480 / 3480 1899 / 1900
Balance 3480 / 3480 1899 / 190
Physical Exam
-
General: Well Developed and Well Nourished
HEENT: Normocephalic and Atraumatic
Respiratory: Clear to Auscultation
Cardiac: Regular Rhythm and S1/S2
GI: Soft, Nontender, Nondistended and Normal Bowel Sounds
Skin: Warm and Dry
Neuro: Awake, Alert, Oriented and AO x 3
--- NOTE | 2024-08-15 14:06 | CM ---
Chart reviewed and plan is to home with spouse no needs when stable.
Plan; Home no needs.
[2024-08-15 15:15] VITALS: BP 135/83
--- NOTE | 2024-08-15 18:43 | W.DCSUMMARY ---
Documented by User: Rakel Rojo MD, Resident 08/16/24 18:53
Discharge Summary
Discharge Data
Date of Admission: 08/12/24
Date of Discharge: 08/16/24
-
Pending Results: No
Hospital Course
Discharging Physician : Dr. Edmondson, .
Disposition : Home
Primary care physician : Dr. Zeinab Balderas.
Principal Discharge diagnosis : Severe colitis of the descending colon
Hospital Course : 69-year-old female presented to the ER with crampy abdominal pain mostly right-sided with nausea diarrhea and a small amount of blood in the stool. She had elevated white count�15.9, tachycardic and tachypneic. CT showed
evidence of severe colitis of the descending colon. She was started on IV fluids, Zosyn, NPO. GI was consulted. Stool studies were negative�culture, C. difficile, Cryptosporidium, diarrhea, norovirus. Patient has type 2 diabetes mellitus, was
also on Mounjaro. Recommended to avoid Mounjaro, Jardiance and metformin were on hold. Her diet was advanced as tolerated. Vitals and labs were monitored daily. GI planning on doing outpatient EGD/colonoscopy for definitive diagnosis. Her
abdominal pain and bleeding has improved. She is tolerating oral intake well. Patient has clinically improved and is hemodynamically stable to be discharged home on oral antibiotics.�Augmentin 500/125 twice daily for 4 more days (total course of
antibiotics�7 days). Advised to follow-up with primary care physician in 1 week, follow-up with GI in 4 to 6 weeks for EGD/colonoscopy.
Important imaging findings :
CT abdomen pelvis�08/12/[address]24
CT findings are most compatible with a moderate to severe colitis of the descending colon.
Discharge Plan
-
Patient Disposition: Home (Routine Discharge)
Discharge Diagnosis/Procedures: Severe colitis, DM 2, hyperlipidemia, hypothyroidism
Diet: Low Fiber and Low Residue
Activity: No restrictions
Driving Restrictions: As prior to admission
Bathing Restrictions: None
Others Tests: colonoscopy in 6 to 8 weeks with gastroenterology
Referrals:
Abilio Mariscal MD [Active, Gastroenterology]
Referral Note: our office will call and will need to arrange 3-4 week follow up with Dr. Mariscal or [facility]. Will need colonoscopy in 6-8 weeks. Call [phone] to schedule
Zeinab Balderas MD [Family Provider, [facility]] - in less than 1 week
Prescriptions:
New
amoxicillin-pot clavulanate [Augmentin] 500-125 mg tablet
1 tab PO BID Qty: 8 0RF
Continued
atorvastatin 40 mg Tablet
40 mg PO QPM
Jardiance 25 mg Tablet
25 mg PO QPM
levothyroxine [Synthroid] 88 mcg Tablet
88 mcg PO DAILY
metformin 500 mg Tablet Extended Release 24 Hr
1,000 mg PO QPM
esomeprazole magnesium [Nexium] 20 mg Capsule,Delayed Release(Dr/Ec)
20 mg PO DAILY
cholecalciferol (vitamin D3) [Vitamin D3] 25 mcg (1,000 unit) Tablet,Chewable
50 mcg PO DAILY
cyanocobalamin (vitamin B-12) 1,000 mcg Lozenge
1,000 mcg SUBLINGUAL DAILY
biotin 2,500 mcg Tablet,Chewable
2,500 mcg PO DAILY
Discontinued
Mounjaro 7.5 mg/0.5 mL Pen Injector
7.5 mg SC TU
Discharge Orders:
Discharge Patient (As Directed); Ordered 08/15/24
Ordered By: Rakel Rojo
Discharge Date and Time
Discharge Date/Time: 08/15/24 15:45
Print Language: ROMANSH

Documented by User: Db Edmondson DO 08/17/24 13:55
Discharge Summary
Discharge Data
Date of Admission: 08/12/24
Date of Discharge: 08/17/24
Total time spent discharging patient (in min): 31
Hospital Course
Discharging Physician : Dr. Edmondson, .
Disposition : Home
Primary care physician : Dr. Zeinab Balderas.
Principal Discharge diagnosis : Severe colitis of the descending colon
Hospital Course : 69-year-old female presented to the ER with crampy abdominal pain mostly right-sided with nausea diarrhea and a small amount of blood in the stool. She had elevated white count�15.9, tachycardic and tachypneic. CT showed
evidence of severe colitis of the descending colon. She was started on IV fluids, Zosyn, NPO. GI was consulted. Stool studies were negative�culture, C. difficile, Cryptosporidium, diarrhea, norovirus. Patient has type 2 diabetes mellitus, was
also on Mounjaro. Recommended to avoid Mounjaro, Jardiance and metformin were on hold. Her diet was advanced as tolerated. Vitals and labs were monitored daily. GI planning on doing outpatient EGD/colonoscopy for definitive diagnosis. Her
abdominal pain and bleeding has improved. She is tolerating oral intake well. Patient has clinically improved and is hemodynamically stable to be discharged home on oral antibiotics.�Augmentin 875/125 twice daily for 4 more days (total course of
antibiotics�7 days). Advised to follow-up with primary care physician in 1 week, follow-up with GI in 4 to 6 weeks for EGD/colonoscopy.
Important imaging findings :
CT abdomen pelvis�08/12/2024
CT findings are most compatible with a moderate to severe colitis of the descending colon.
Discharge Plan
-
Patient Disposition: Home (Routine Discharge)
Discharge Diagnosis/Procedures: Severe colitis, DM 2, hyperlipidemia, hypothyroidism
Diet: Low Fiber and Low Residue
Activity: No restrictions
Driving Restrictions: As prior to admission
Bathing Restrictions: None
Others Tests: colonoscopy in 6 to 8 weeks with gastroenterology
Referrals:
Abilio Mariscal MD [Active, Gastroenterology]
Referral Note: our office will call and will need to arrange 3-4 week follow up with Dr. Mariscal or [facility]. Will need colonoscopy in 6-8 weeks. Call [phone] to schedule
Zeinab Balderas MD [Family Provider, Family Practice] - in less than 1 week
Prescriptions:
New
amoxicillin-pot clavulanate [Augmentin] 500-125 mg tablet
1 tab PO BID Qty: 8 0RF
Continued
atorvastatin 40 mg Tablet
40 mg PO QPM
Jardiance 25 mg Tablet
25 mg PO QPM
levothyroxine [Synthroid] 88 mcg Tablet
88 mcg PO DAILY
metformin 500 mg Tablet Extended Release 24 Hr
1,000 mg PO QPM
esomeprazole magnesium [Nexium] 20 mg Capsule,Delayed Release(Dr/Ec)
20 mg PO DAILY
cholecalciferol (vitamin D3) [Vitamin D3] 25 mcg (1,000 unit) Tablet,Chewable
50 mcg PO DAILY
cyanocobalamin (vitamin B-12) 1,000 mcg Lozenge
1,000 mcg SUBLINGUAL DAILY
biotin 2,500 mcg Tablet,Chewable
2,500 mcg PO DAILY
Discontinued
Mounjaro 7.5 mg/0.5 mL Pen Injector
7.5 mg SC TU
Discharge Orders:
Discharge Patient (As Directed); Ordered 08/15/24
Ordered By: Rakel Rojo
Discharge Date and Time
Discharge Date/Time: 08/15/24 15:45
Print Language: ROMANSH
--- NOTE | 2024-08-16 12:43 | PN.CDI ---
CDI
- -
CDI:
Physician Documentation Request
Admit Date: 08/12/24 17:54
Dear Doctor Sindhu Rojo,
Patient admitted for colitis.
08/12 Update Note: 'SIRS( HR > 90, WCC 15.9 wity ) paulo to severe colitis of descending colon DDX: infective vs IBD. Presumed sepsis'
08/15 Hospitalist PN: 'Colitis, unspecified what differentials include ischemic colitis >> infectious colitis, diverticulitis...Will transition antibiotics to Augmentin to complete 7-day total.'
Selected Entries
08/12/24
11:31 08/12/24
18:13 08/12/24
23:09
Pulse 96 101 105
08/12/24 08/13/24
13:20 06:30
WBC 15.9 H 16.3 H
Please clarify which of the following most accurately describes the patient's infectious status:
Sepsis, POA
- Systemic manifestations of infection, with 2 or more SIRS criteria which include:
- Fever >100.9 degrees F or hypothermia < 96.8 degrees F
- Leukocytosis - WBC > 12,000 or leukopenia - WBC < 4,000 or > 10% bands
- Tachycardia > 90 beats per minute
- Tachypnea - RR > 20 breaths per minute or PaCO2 , 32mmHg
Source: Merck Manual 2012
- Indicate the known or suspected organism
- Indicate the known or suspected underlying infection, such as UTI, pneumonia or cellulitis
- Indicate if a suspected bacterial infection of unknown source
- Indicate if associated with an implanted device such as a F/C, PICC line, orthopedic hardware, etc.
Localized Infection Only, Without Systemic Illness
- indicate the site/source, such as UTI, pneumonia etc.
SIRS of non-infectious origin
Other
Use of terms such as suspected, likely, concern for, or probable (associated with a specific diagnosis that is being evaluated, monitored, or treated as if it exists) are acceptable and can be coded in the inpatient setting, when documented at the
time of discharge.
Thank you,
Giuliana Cifuentes RN, BSN
CDI Specialist
Available via [place] text
Please use your independent medical judgment in providing your response.
== END 2024-08-15 15:45 | disposition home or self-care (01) | DRG 872 ==
LOC: 4 WEST ACU 17:54
PROVIDERS: Clinical Nurse Specialist Family Health; Student in an Organized Health Care Education/Training Program; ADMITTING PHYSICIAN Internal Medicine; ATTENDING PHYSICIAN Internal Medicine; CONSULT PHYSICIAN Internal Medicine; EMERGENCY PHYSICIAN Emergency Medicine; FAMILY PHYSICIAN Family Medicine
DX: A41.9 Sepsis, unspecified organism (principal); K52.9 Noninfective gastroenteritis and colitis, unspecified; E11.9 Type 2 diabetes mellitus without complications; E78.00 Pure hypercholesterolemia, unspecified; E03.9 Hypothyroidism, unspecified; K21.9 Gastro-esophageal reflux disease without esophagitis; G89.29 Other chronic pain; M25.551 Pain in right hip; E66.811 Obesity, class 1; K22.70 Barrett's esophagus without dysplasia; Z79.84 Long term (current) use of oral hypoglycemic drugs; Z79.890 Hormone replacement therapy; Z79.899 Other long term (current) drug therapy
CPT/HCPCS: 74177; 80053; 82962; 83036; 83690; 85025; 85652; 86140; 87045; 87046; 87324; 87328; 87329; 87427; 87449; 87798; 89055; 96374; 96375; 99284; Q9967

== ENCOUNTER 2024-10-17 06:17 | Day surgery (SDC) | payer MEDICARE, SELFPAY ==
[2024-10-17 07:55] LABS: Glucose - Point of Care 136 mg/dl (70-99)
== END 2024-10-17 09:15 | disposition home or self-care (01) ==
LOC: GI 06:17
PROVIDERS: ATTENDING PHYSICIAN Internal Medicine; FAMILY PHYSICIAN Family Medicine
DX: K52.9 Noninfective gastroenteritis and colitis, unspecified (principal); K64.8 Other hemorrhoids; K57.30 Diverticulosis of large intestine without perforation or abscess without bleeding; K21.9 Gastro-esophageal reflux disease without esophagitis; K22.89 Other specified disease of esophagus; K31.7 Polyp of stomach and duodenum; K29.50 Unspecified chronic gastritis without bleeding; K22.70 Barrett's esophagus without dysplasia; Z13.810 Encounter for screening for upper gastrointestinal disorder
CPT/HCPCS: 45380; 43239; 82962; 88305; 88342